=== PATIENT | female | born 1995 | race Caucasian/White ===

== ENCOUNTER 2021-09-22 13:00 | Emergency (ER) | payer SELFPAY ==
--- OUTSIDE RECORDS SUMMARY | 2021-09-22 13:04 | XMS REPORT | Continuity of Care Document ---
:1995 Author Organization [facility] t Address [address] [place] [address] Care Team Providers Name Role Phone Guerda VOGEL Primary Care Physician Unavailable AMY Attending Clinician Unavailable KESHAWN Attending Clinician Unavailable Guerda Santos Attending Clinician Guerad VOGEL Attending Clinician Unavailable Doctor Unassigned, Name Attending Clinician Unavailable KESHAWN Admitting Clinician Unavailable Payers Payer Name Policy Type Policy Number Effective Date Expiration Date [facility] [id number] 2016 00:00:00 [employer] (MEDICAID HMO) [place] [id number] [place] Problems Condition Condition Condition Status Onset Resolution Last Treating Co mments Source Name Details Category Date Date Treatment Clinician Date Pain Pain Disease Active Univers pelvic pelvic 3-16 ity of 00:00: [address] Irregular Irregular Disease Active Uni vers menstrual menstrual 3-16 ity of cycle cycle 00:00: [place] 00 [facility] Tobacco Tobacco Disease Active Univers use use 3-16 ity of disorder disorder 00:00: [place] 00 [facility] History of History of Disease Active U nivers tubal tubal 3-16 ity of ligation ligation 00:00: [place] 00 [facility] Chlamydia Chlamydia Disease Active Uni vers trachomati trachomati 5-17 it y of s s 00:00: [place] infection infection 00 Medi petar of lower of lower Branch genitourin genitourin luis sites luis sites Immune to Immune to Disease Active 2012-09 Uni vers varicella varicella 1-18 ity of 00:00: [place] [facility] Not immune Not immune Disease Active 2012-09 Overview : Univers to rubella to rubella 0-30 Formattin ity of 00:00: g of this 00 note Medical might be Branch different from the original. 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 Per records primary low transvers e. Due to failure to dilate. Cephalope lvic dispropor tion at 39w5d after elective IOL Allergies, Adverse Reactions, Alerts Allergy Allergy Status Severity Reaction(s) Onset Inactive Treating Comm ents Source Name Type Date Date Clinician PENICILL Drug Active Anaphylaxis 2012-09 Uni vers INS Class 0-21 ity of 00:00: [place] 00 Medical [facility] Penicill Propensi Active Anaphylaxis 2012-09 U nivers ins ty to 0-21 ity of adverse 00:00: [place] reaction 00 Medical s Branch Social History Social Habit Start Date Stop Date Quantity Comments Source History of 2014-08-22 Cigarette Smoker Universi ty of tobacco use 00:00:00 [facility] Exposure to Not sure University of SARS-CoV-2 [facility] (event) Branch Tobacco use and 2021-02-17 2021-02-17 Never used Universit y of exposure 00:00:00 00:00:00 [facility] Alcohol intake 2021-02-17 2021-02-17 Current non-drinker U niversity of 00:00:00 00:00:00 of alcohol [facility] (finding) Branch Cigarettes smoked 2021-02-17 2021-02-17 Univers ity of current (pack per 00:00:00 00:00:00 [facility] ) - Reported Branch Cigarette 2021-02-17 2021-02-17 University of pack-years 00:00:00 00:00:00 [facility] Alcohol Comment 2020-11-17 2020-11-17 occasionally Univers ity of 00:00:00 00:00:00 [facility] Sex Ass[birth year] At [birth year] Universit y of 00:00:00 00:00:00 [facility] Smoking Status Start Date Stop Date Source Current every day 2021-02-17 00:00:00 [facility] smoker Medical Branch Former smoker 2015-01-19 00:00:00 2015-01-19 00:00:00 [facility] [place] Medications Ordered Filled Start Stop Current Ordering Indication Dosage Frequency Signature Comments Components Source Medication Medication Date Date Medication? Clinician (SIG) Name Name ajay Yes [id number] 1{tbl} Take 1 Univers ne 0.35 mg 3-16 tablet by ity of tablet 00:00: mouth [place] 00 daily. Medical Branch foxndro Yes [id number] 1{tbl} Take 1 Univers ne 0.35 mg 3-16 tablet by ity of tablet 00:00: mouth [place] 00 daily. Medical Branch norethindro Yes [id number] 1{tbl} Take 1 Univers ne 0.35 mg 3-16 tablet by ity of tablet 00:00: mouth [place] 00 daily. [facility] Branch foxndro Yes [id number] 1{tbl} Take 1 Univers ne 0.35 mg 3-16 tablet by ity of tablet 00:00: mouth [place] 00 daily. Medical Branch foxndro Yes [id number] 1{tbl} Take 1 Univers ne 0.35 mg 3-16 tablet by ity of tablet 00:00: mouth [place] 00 daily. [facility] Branch noresamuelndro Yes [id number] 1{tbl} Take 1 Univers ne 0.35 mg 3-16 tablet by ity of tablet 00:00: mouth [place] 00 daily. [facility] Branch foxndro Yes [id number] 1{tbl} Take 1 Univers ne 0.35 mg 3-16 tablet by ity of tablet 00:00: mouth [place] 00 daily. Medical Branch naproxen Yes 250mg Take 1 Tab [place] (NAPROSYN) 5-04 by mouth ity o f 250 mg 00:00: every 6 [place] tablet 00 (six) Medical hours. Branch naproxen Yes 250mg Take 1 Tab [place] (NAPROSYN) 5-04 by mouth ity o f 250 mg 00:00: every 6 [place] tablet 00 (six) Medical hours. Branch naproxen Yes 250mg Take 1 Tab [place] (NAPROSYN) 5-04 by mouth ity o f 250 mg 00:00: every 6 [place] tablet 00 (six) Medical hours. Branch naproxen Yes 250mg Take 1 Tab [place] (NAPROSYN) 5-04 by mouth ity o f 250 mg 00:00: every 6 [place] tablet 00 (six) Medical hours. Branch naproxen Yes 250mg Take 1 Tab [place] (NAPROSYN) 5-04 by mouth ity o f 250 mg 00:00: every 6 [place] tablet 00 (six) Medical hours. Branch naproxen Yes 250mg Take 1 Tab [place] (NAPROSYN) 5-04 by mouth ity o f 250 mg 00:00: every 6 [place] tablet 00 (six) Medical hours. Branch naproxen Yes 250mg Take 1 Tab [place] (NAPROSYN) 5-04 by mouth ity o f 250 mg 00:00: every 6 [place] tablet 00 (six) Medical hours. Branch naproxen Yes 250mg Take 1 Tab [place] (NAPROSYN) 5-04 by mouth ity o f 250 mg 00:00: every 6 [place] tablet 00 (six) Medical hours. [place] Yes 1{tbl} Take 1 Tab U nivers multivitami 3-19 by mouth ity of n ( 00:[place] VITAMIN[place] 00 Medical tablet [place] Yes 1{tbl} Take 1 Tab U nivers multivitami 3-19 by mouth ity of n ( 00:[place] VIT[place] 00 Medical tablet [place] Yes 1{tbl} Take 1 Tab U nivers multivitami 3-19 by mouth ity of n ( 00:[place] VIT[place] 00 Medical tablet Branch Yes 1{tbl} Take 1 Tab U nivers multivitami 3-19 by mouth ity of n ( 00:[place] VIT[place] 00 Medical tablet [place] Yes 1{tbl} Take 1 Tab U nivers multivitami 3-19 by mouth ity of n ( [place] VIT[place] 00 Medical tablet [place] Yes 1{tbl} Take 1 Tab U nivers multivitami 3-19 by mouth ity of n ( [place] VIT[place] 00 Medical tablet Branch Yes 1{tbl} Take 1 Tab U nivers multivitami 3-19 by mouth ity of n ( [place] VIT[place] 00 Medical tablet Branch Yes 1{tbl} Take 1 Tab U nivers multivitami 3-19 by mouth ity of n ( [place] VIT[place] Medical tablet Branch 2012-09 Yes [id number] 1{tbl} Take 1 Tab Univers vitamin 0-21 by mouth ity of w/FA 00:00: daily. [place] (PRENATABS 00 Medical RX) tablet Branch 2012-09 Yes [id number] 1{tbl} Take 1 Tab Univers vitamin 0-21 by mouth ity of w/FA 00:00: daily. [place] (PRENATABS 00 Medical RX) tablet Branch 2012-09 Yes [id number] 1{tbl} Take 1 Tab Univers vitamin 0-21 by mouth ity of w/FA 00:00: daily. [place] (PRENATABS 00 Medical RX) tablet Branch 2012-09 Yes [id number] 1{tbl} Take 1 Tab Univers vitamin 0-21 by mouth ity of w/FA 00:00: daily. [place] (PRENATABS 00 Medical RX) tablet Branch 2012-09 Yes [id number] 1{tbl} Take 1 Tab Univers vitamin 0-21 by mouth ity of w/FA 00:00: daily. [place] (PRENATABS 00 Medical RX) tablet Branch 2012-09 Yes [id number] 1{tbl} Take 1 Tab Univers vitamin 0-21 by mouth ity of w/FA 00:00: daily. [place] (PRENATABS 00 Medical RX) tablet Branch 2012-09 Yes [id number] 1{tbl} Take 1 Tab Univers vitamin 0-21 by mouth ity of w/FA 00:00: daily. [place] (PRENATABS 00 Medical RX) tablet Branch 2012-09 Yes [id number] 1{tbl} Take 1 Tab Univers vitamin 0-21 by mouth ity of w/FA 00:00: daily. [place] (PRENATABS 00 Medical RX) tablet Branch Immunizations Ordered Filled Immunization Date Status Comments [facility] e Immunization Name Name Rubella 2013-06-24 Completed University of 00:00:00 [place] [facility] Rubella 2013-06-24 Completed University of 00:00:00 [place] [facility] Rubella 2013-06-24 Completed University of 00:00:00 [place] [facility] Rubella 2013-06-24 Completed University of 00:00:00 [place] [facility] Rubella 2013-06-24 Completed University of 00:00:00 [place] [facility] Rubella 2013-06-24 Completed University of 00:00:00 [place] [facility] Rubella 2013-06-24 Completed University of 00:00:00 [place] [facility] Rubella 2013-06-24 Completed University of 00:00:00 [place] [facility] Td 2007-09-04 Completed University of 00:00:00 [place] [facility] Td 2007-09-04 Completed University of 00:00:00 [place] [facility] Td 2007-09-04 Completed University of 00:00:00 [place] [facility] Td 2007-09-04 Completed University of 00:00:00 [place] [facility] Td 2007-09-04 Completed University of 00:00:00 [place] [facility] Td 2007-09-04 Completed University of 00:00:00 [place] [facility] Td 2007-09-04 Completed University of 00:00:00 [place] [facility] Td 2007-09-04 Completed University of 00:00:00 [facility] Branch Vital Signs Vital Name Observation Time Observation Value Comments Source Systolic blood 2021-02-17 13:57:00 96 mm[Hg] Univer sity of pressure [facility] Diastolic blood 2021-02-17 13:57:00 62 mm[Hg] Unive rsity of [facility] Heart rate 2021-02-17 13:57:00 69 /min [facility] Body temperature 2021-02-17 13:57:00 36.44 Nancy [facility] Res[facility] rate 2021-02-17 13:57:00 16 /min [facility] Body height 2021-02-17 13:57:00 154.9 cm [facility] Body weight 2021-02-17 13:57:00 55.424 kg [facility] BMI 2021-02-17 13:57:00 23.09 kg/m2 [facility] Systolic blood 2020-11-17 18:47:00 114 mm[Hg] Univer sity of pressure [facility] Branch Diastolic blood 2020-11-17 18:47:00 73 mm[Hg] Unive rsity of [facility] Heart rate 2020-11-17 18:47:00 76 /min [facility] Body temperature 2020-11-17 18:47:00 36.72 Nancy [facility] Respiratory rate 2020-11-17 18:47:00 16 /min [facility] Body height 2020-11-17 18:47:00 154.9 cm [facility] Body weight 2020-11-17 18:47:00 51.001 kg [facility] BMI 2020-11-17 18:47:00 21.24 kg/m2 [facility] Procedures Procedure Date / Time Performed Performing Clinician Sour e POCT TEST 2021-02-17 13:59:00 Ketty Vogel [facility] HIV 1/2 AG-AB WITH 2020-11-17 19:39:00 Ketty Vogel [facility] PAP SMEAR-LIQUID 2020-11-17 19:39:00 Ketty Vogel [facility] ASSIGNMENT OF BENEFITS 2020-11-17 18:28:55 Doctor Unassigned, No [facility] Encounters Start End Encounter Admission Attending Care Care Encounter Source Date/Time Date/Time Type Type Clinicians Facility Department ID 2021-09-20 2021-09-20 Outpatient R [facility] [id number] Univers 16:00:00 16:00:00 [id number] [facility] 2021-09-20 2021-09-20 Outpatient R AMY [facility] [id number] Univers 16:00:00 16:00:00 JERICA [facility] 2021-07-28 2021-07-28 Outpatient CLAU BROTHERS [id number] [place] 12:58:00 12:58:00 [facility] 2021-02-22 2021-02-22 Outpatient R [facility] [id number] Univers 08:30:00 08:30:00 [id number] ity [facility] 2021-02-22 2021-02-22 Outpatient R [facility] [id number] Univers 08:30:00 [facility] 2021-02-17 2021-02-17 Office Major, [facility] [id number] Univers 08:49:15 09:15:37 Visit 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 [id number] ity [facility] [id number] Aleksandar as MATERNAL [id number] Med ical & CHILD [address] [place] [address] 2021-02-17 2021-02-17 Outpatient R MAJOR, [facility] [id number] Univers 09:00:00 09:00:00 KETTY [id number] ity o [facility] 2021-02-17 2021-02-17 Outpatient R MAJOR, [facility] [id number] Univers 09:00:00 09:00:00 KETTY ity o [facility] 2021-02-17 2021-02-17 Outpatient R AKINSIPE, [facility] [id number] Univers 09:00:00 09:00:00 KETTY ity o [facility] 2021-01-12 2021-01-12 Outpatient R [facility] [id number] Univers 08:30:00 08:30:00 [id number] ity [facility] [place] [facility] 2021-01-12 2021-01-12 Outpatient R [facility] [id number] Univers 08:30:00 08:30:00 ity [facility] [place] [facility] 2020-12-08 2020-12-08 Outpatient [facility] [id number] Univers 10:00:00 10:00:00 [id number] [facility] 2020-12-08 2020-12-08 Outpatient R AKINTALPE, [facility] [id number] Univers 10:00:00 10:00:00 KETTY hodgesy o [facility] 2020-12-01 2020-12-01 [facility] [id number] Univers 00:00:00 00:00:00 Ketty Guerda [employer] DEVEL[employer] [id number] ity of [facility] [id number] Aleksandar as MATERNAL [id number] [facility] & [address] 2020-11-17 2020-11-17 Office Warnersukhjinder [facility] [id number] Univers 13:33:34 14:36:13 Visit 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 [id number] ity of [facility] [id number] Aleksandar as MATERNAL [id number] [facility] [address] [place] [address] 2020-11-17 2020-11-17 Outpatient R [facility] [id number] [facility] 13:30:00 13:30:00 KETTY ity o f [facility] 2020-11-17 2020-11-17 Orders Doctor NAHED [id number] [facility] 00:00:00 00:00:00 Only Unassigned, LOS [id number] ity of [place] [facility] [id number] Aleksandar as [id number] [address] Results Test Description Test Time Test Comments Results Result Comments Source POCT TEST 2021-02-17 14:03:00 Test Item Value Reference Range Interpretation Comme nts POCT PREG (test code = 1605) Negative On board controls acceptable with C Line (test code = 3574) Yes POCT PREG LOT # (test code = 3575) POCT PREG TEST DATE (test code = 3576) [id number] 14:03:00 Test Item Value Reference Range Interpretation Comments POCT PREG (test code = 1605) Negative On board controls acceptable with C Yes Line (test code = 3574) POCT PREG LOT # (test code = 3575) POCT PREG TEST DATE (test code = 3576) [facility]-AB WITH [id number] 05:45:05 Test Item Value Reference Range Interpretation Comments HIV Negative Negative Semi-quantitative (test code = 97993-9) CLAUDIA (test code = Non-reactive for HIV-1 CLAUDIA) antigen and HIV-1/HIV-2 antibodies. ?No laboratory evidence of HIV infection. ?Repeat in 2-4 weeks if acute HIV infection is suspected. [facility]-AB WITH [id number] 05:45:05 Test Item Value Reference Range Interpretation Comments HIV Negative Negative Semi-quantitative (test code = 22975-1) CLAUDIA (test code = Non-reactive for HIV-1 CLAUDIA) antigen and HIV-1/HIV-2 antibodies. ?No laboratory evidence of HIV infection. ?Repeat in 2-4 weeks if acute HIV infection is suspected. [facility]
--- NOTE | 2021-09-22 16:17 | ER ---
Nurse's Notes [facility] Name: Ana María [place] Age: 26 yrs Sex: Female : 1995 Arrival Date: 09/22/2021 Time: 13:02 Bed Waiting Private MD: Diagnosis: Presentation: 09/22 13:45 Chief complaint: Patient states: "I have been bleeding and went trough an entire box of jd3 pads yesterday. I am not on my cycle, but my mom is cystic and my sister is cystic, but they didn't check me.". Coronavirus screen: At this time, the client does not indicate any symptoms associated with coronavirus-19. Ebola Screen: Patient negative for fever greater than or equal to 101.5 degrees Fahrenheit, and additional compatible Ebola Virus Disease symptoms. Initial Sepsis Screen: Does the patient meet any 2 criteria? No. Patient's initial sepsis screen is negative. Does the patient have a suspected source of infection? No. Patient's initial sepsis screen is negative. Risk Assessment: Do you want to hurt yourself or someone else? Patient reports no desire to harm self or others. Onset of symptoms was September 22, 2021. 13:45 Method Of Arrival: Ambulatory jd3 13:45 Acuity: DEEPA 3 jd3 Triage Assessment: 14:06 General: Appears in no apparent distress. comfortable, Behavior is calm, cooperative, jd3 appropriate for age. Pain: Complains of pain in abdomen. Neuro: Level of Consciousness is awake, alert, obeys commands, Oriented to person, place, time, situation. Respiratory: No deficits noted. : Reports vaginal bleeding that is bright red, moderate flow. 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 Flu vaccine is not up to date. - Social history:: Smoking status: Patient reports the use of cigarette tobacco products, smokes one-half pack cigarettes per day. Vital Signs: 13:47 BP 111 / 85; Pulse 62; Resp 17 S; Temp 97.7(TE); Pulse Ox 100% on R/A; Weight 52.16 kg jd3 (R); Height 5 ft. 0 in. (152.40 cm) (R); Pain 5/10; 13:47 Body Mass Index 22.46 (52.16 kg, 152.40 cm) jd3 ED Course: 13:02 Patient arrived in ED. mr 13:46 Triage completed. jd3 13:48 Arm band placed on. jd3 15:02 Sadaf Holden FNP-C [facility] kb 15:02 Thee Garcia MD is Attending Physician. kb Administered Medications: No medications were administered Outcome: 16:16 Patient left the ED. jd3 Signatures: Sadaf Holden FNP-C FNP-Charo Kang mr PatelKyle RN RN jd3
[2021-09-22 16:32] VITALS: BP 111/85; TEMP 97.7; O2SAT 100
== END 2021-09-22 16:16 | disposition left against medical advice (07) ==
LOC: ER 13:00
DX: Z53.21 Procedure and treatment not carried out due to patient leaving prior to being seen by health care provider (principal)
CPT/HCPCS: 99281